=== PATIENT | male | born 1960 | race Caucasian/White ===

== ENCOUNTER 2022-05-09 05:22 | Emergency (ER) | payer BC ==
--- OUTSIDE RECORDS SUMMARY | 2022-05-09 05:25 | XMS REPORT | Continuity of Care Document ---
:1960 Author Organization [facility] t Address [address] [facility] [address] [place] [address] Care Team Providers Name Role Phone Everett Morin Attending Clinician Unavailable ESTHER JEFFRIES Attending Clinician Unavailable Faustina Adams Attending Clinician Payers Payer Name Policy Type Policy Number Effective Date Expiration Date S [facility] [employer] 6 [id number] 2018 Common Spir it [employer] of 10 00:00:00 - [facility] Problems Condition Condition Condition Status Onset Resolution Last Treating Co mments Source Name Details Category Date Date Treatment Clinician Date R05 - R05 - Diagnosis Active 2015-11-20 Mem oria COUGH COUGH 11-19 12:30:00 l Active 00:01: Chele 11/20/2015 00 [facility] OPID [place] [id number] Hypertrigl Problem Active Co mmon yceridemia Spirit - [facility] [id number] Non-season Problem Active Com mon al Spirit allergic - [id number] HTN, goal Problem Active Comm on below Spirit 140/90 - [facility] [id number] Erectile Problem Active Comm on dysfunctio Spirit n, - [facility] unspec[facility]ie [facility] d erectile [facility]ctio [facility] [id number] GERD Problem Active Common without Spirit esophagiti - [facility] [id number] Mitral Problem Active Common valve Spirit prolapse - [facility] Allergies, Adverse Reactions, Alerts This patient has no known allergies or adverse reactions. Social History Social Habit Start Date Stop Date Quantity Comments Source History of Tobacco Common Spirit - Use [facility] Sex Assigned At Common Sp ronda - [facility] Social History 2015-11-20 2015-11-20 Janki chin 16:24:16 16:24:16 Smoking Status Start Date Stop Date Source Former Smoker 2021-09-09 00:00:00 2021-09-09 00:00:00 Common S pirit [facility] Medications Ordered Filled Start Stop Current Ordering Indication Dosage Frequency Signature Comments Components Source Medication Medication Date Date Medication? Clinician (SIG) Name Name Lisinopril- Lisinopril- Yes Everett 1 tablet Common Hydrochloro Hydrochloro [facility] thiazide thiazide - [facility] Nexium Nexium Yes Everett [address] [facility] Allergy Allergy Yes Everett 1 tablet Com mon Relief Relief [facility] Turmeric Turmeric Yes Everett as Commo n [facility] directed [facility] Lisinopril- Lisinopril- No 1{table QD Lisinopril hydroCHLORO hydroCHLORO t} -hydroCHLO thiazide thiazide ROthiazide 20-12.5 MG 20-12.5 MG 20-12.5 MG Turmeric Turmeric No Turmeric 1053 MG 1053 MG 1053 MG NexIUM 20 NexIUM 20 No 1{capsu QD NexIUM 20 MG MG le} MG Allergy Allergy No 1{table QD Allergy Relief 10 Relief 10 t} Relief 10 MG MG MG Turmeric Turmeric No Turmeric 1053 MG 1053 MG 1053 MG Lisinopril- Lisinopril- No 1{table QD Lisinopril hydroCHLORO hydroCHLORO t} -hydroCHLO thiazide thiazide ROthiazide 20-12.5 MG 20-12.5 MG 20-12.5 MG Allergy Allergy No 1{table QD Allergy Relief 10 Relief 10 t} Relief 10 MG MG MG NexIUM 20 NexIUM 20 No 1{capsu QD NexIUM 20 MG MG le} MG Turmeric Turmeric No Turmeric 1053 MG 1053 MG 1053 MG Lisinopril- Lisinopril- No 1{table QD Lisinopril hydroCHLORO hydroCHLORO t} -hydroCHLO thiazide thiazide ROthiazide 20-12.5 MG 20-12.5 MG 20-12.5 MG Allergy Allergy No 1{table QD Allergy Relief 10 Relief 10 t} Relief 10 MG MG MG NexIUM 20 NexIUM 20 No 1{capsu QD NexIUM 20 MG MG le} MG NexIUM 20 NexIUM 20 No 1{capsu QD NexIUM 20 MG MG le} MG Lisinopril- Lisinopril- No 1{table QD Lisinopril hydroCHLORO hydroCHLORO t} -hydroCHLO thiazide thiazide ROthiazide 20-12.5 MG 20-12.5 MG 20-12.5 MG Allergy Allergy No 1{table QD Allergy Relief 10 Relief 10 t} Relief 10 MG MG MG Turmeric Turmeric No Turmeric 1053 MG 1053 MG 1053 MG NexIUM 20 NexIUM 20 No 1{capsu QD NexIUM 20 MG MG le} MG Lisinopril- Lisinopril- No 1{table QD Lisinopril hydroCHLORO hydroCHLORO t} -hydroCHLO thiazide thiazide ROthiazide 20-12.5 MG 20-12.5 MG 20-12.5 MG Allergy Allergy No 1{table QD Allergy Relief 10 Relief 10 t} Relief 10 MG MG MG Turmeric Turmeric No Turmeric 1053 MG 1053 MG 1053 MG Lisinopril- Lisinopril- No 1{table QD Lisinopril hydroCHLORO hydroCHLORO t} -hydroCHLO thiazide thiazide ROthiazide 20-12.5 MG 20-12.5 MG 20-12.5 MG Turmeric Turmeric No Turmeric 1053 MG 1053 MG 1053 MG NexIUM 20 NexIUM 20 No 1{capsu QD NexIUM 20 MG MG le} MG Allergy Allergy No 1{table QD Allergy Relief 10 Relief 10 t} Relief 10 MG MG MG Immunizations Ordered Immunization Filled Immunization Date Status Commen ts Source Name Name Boostrix (Tdap) Boostrix (Tdap) 2020-11-06 Completed Comm on - 14:16:00 [facility] Boostrix (Tdap) Boostrix (Tdap) 2020-11-06 Completed Comm on 14:16:00 [facility] Boostrix (Tdap) Boostrix (Tdap) 2020-11-06 Completed Comm on Spirit - 14:16:00 [facility] Boostrix (Tdap) Boostrix (Tdap) 2020-11-06 Completed Comm on Spirit - 14:16:00 [facility] Boostrix (Tdap) Boostrix (Tdap) 2020-11-06 Completed Comm on Spirit - 14:16:00 [facility] Boostrix (Tdap) Boostrix (Tdap) 2020-11-06 Completed Comm on Spirit - 14:16:00 [facility] PNEUMAVAX 23 PNEUMAVAX 2018-10-18 Completed Common Spi rit - 14:16:00 [facility] PNEUMAVAX 23 PNEUMAVAX 2018-10-18 Completed Common Spi rit - 14:16:00 [facility] PNEUMAVAX 23 PNEUMAVAX 2018-10-18 Completed Common Spi rit - 14:16:00 [facility] PNEUMAVAX 23 PNEUMAVAX 2018-10-18 Completed Common Spi rit - 14:16:00 [facility] PNEUMAVAX 23 PNEUMAVAX 2018-10-18 Completed Common Spi rit - 14:16:00 [facility] PNEUMAVAX 23 PNEUMAVAX 2018-10-18 Completed Common Spi rit - 14:16:00 [facility] Afluria Afluria 2018-10-18 Completed Common Spirit - 14:15:00 [facility] Afluria Afluria 2018-10-18 Completed Common Spirit - 14:15:00 [facility] Afluria Afluria 2018-10-18 Completed Common Spirit - 14:15:00 [facility] Afluria Afluria 2018-10-18 Completed Common Spirit - 14:15:00 [facility] Afluria Afluria 2018-10-18 Completed Common Spirit - 14:15:00 [facility] Afluria Afluria 2018-10-18 Completed Common Spirit - 14:15:00 [facility] Afluria Afluria 2018-10-18 Completed Common Spirit - 00:00:00 [facility] PNEUMAVAX 23 PNEUMAVAX 23 2018-10-18 Completed Common Spi rit - 00:00:00 [facility] diphtheria/pertussis 2013-02-20 Completed [place] rial , acel/tetanus adult 00:00:00 Alexandr zapata Vital Signs Vital Name Observation Time Observation Value Comments Source blood pressure 2021-09-10 08:00:00 130 mm[Hg] [facility] systolic [facility] blood pressure 2021-09-10 08:00:00 82 mm[Hg] [facility] - diastolic [facility] height 2021-09-10 08:00:00 75 [in_i] [facility] weight 2021-09-10 08:00:00 185.5 [lb_av] [facility] temperature 2021-09-10 08:00:00 98.4 [degF] [facility] bmi 2021-09-10 08:00:00 23.18 kg/m2 [facility] oximetry 2021-09-10 08:00:00 95 % [facility] respiratory rate 2021-09-10 08:00:00 17 /min Comm on [facility] height 2021-07-15 15:00:00 75 [in_i] [facility] weight 2021-07-15 15:00:00 184.4 [lb_av] [facility] temperature 2021-07-15 15:00:00 99.1 [degF] [facility] bmi 2021-07-15 15:00:00 23.05 kg/m2 [facility] oximetry 2021-07-15 15:00:00 95 % [facility] respiratory rate 2021-07-15 15:00:00 16 /min Comm on [facility] blood pressure 2021-07-15 15:00:00 121 mm[Hg] [facility] systolic [facility] blood pressure 2021-07-15 15:00:00 69 mm[Hg] [facility] diastolic [facility] height 2020-11-06 13:30:00 75 [in_i] Common S pirit [facility] weight 2020-11-06 13:30:00 177 [lb_av] Common [facility] bmi 2020-11-06 13:30:00 22.12 kg/m2 [facility] Procedures Procedure Date / Time Performed Performing Clinician Binu bobo Colonoscopy 2010-02-20 00:00:00 [facility] Encounters Start End Encounter Admission Attending Care Care Encounter Source Date/Time Date/Time Type Type Clinicians Facility Department ID 2022-03-31 Outpatient Morin, STLMLC STLMLC [id number] Common 15:28:00 [facility] [address] [facility] 2021-07-28 Outpatient Morin, STLMLC STLMLC [id number] Common 10:43:00 [facility] [address] [facility] 2021-11-05 2021-11-05 (TEL) STLMLC STLMLC [id number] Co mmon 00:00:00 00:00:00 [facility] 2021-09-10 2021-09-10 OFFICE STLMLC STLMLC [id number] Co mmon 00:00:00 00:00:00 VISIT EST Spir it PT LEVEL 3 [facility] 2021-08-17 2021-08-17 (TEL) STLMLC STLMLC [id number] Co mmon 00:00:00 00:00:00 [facility] 2021-07-15 2021-07-15 PREV VISIT STLMLC STLMLC [id number] Common 00:00:00 00:00:00 EST AGE Spirit 40-64 [facility] 2020-11-06 2020-11-06 (TEL) STLMLC STLMLC [id number] Co mmon 00:00:00 00:00:00 [facility] 2020-11-06 2020-11-06 (INJ) STLMLC STLMLC [id number] Co mmon 00:00:00 00:00:00 Injection Spir it - [facility] 2020-09-21 2020-09-21 Outpatient STLMLC STLMLC [id number] Common 00:00:00 00:00:00 [facility] 2020-09-21 2020-09-21 Outpatient STLMLC STLMLC [id number] Common 00:00:00 00:00:00 [facility] 2020-05-29 2020-05-29 Outpatient BRITANY JEFFRIES MHTW [id number] MHTW 12:21:00 23:59:00 ESTHER 2019-02-27 2019-02-27 [id number] Common 16:38:00 16:38:[address] [facility] [facility] 2018-11-22 2018-11-22 Outpatient [facility] [id number] Common 13:00:00 13:00:[address] [facility] [facility] 2018-10-18 2018-10-18 Out[facility] [id number] Common 13:30:00 13:30:[address] [facility] [facility] 2015-11-20 2015-11-21 Outpt Diag nullFlavo [facility] [id number] Memoria 17:21:00 04:59:00 Services r Outpatient 00 l Imaging Chele Elaine 2015-11-20 2015-11-20 Outpatient SARIAH Adams [facility] [id number] 285 12:21:00 23:59:00 Faustina Rubio 00 Results Test Description Test Time Test Comments Results Result Comments Source Colonoscopy Colonoscopy
[2022-05-09 05:58] LABS: Absolute Lymphocytes (CBC) 1.1 K/uL (0.7-4.9); Hematocrit 46.3 % (39.6-49.0); Lymphocytes % 15.4 % (15.3-44.8); MCV 85.6 fL (80-100); MPV 7.2 fL (7.6-11.3); RBC Red Blood Cell Count 5.41 M/uL (4.33-5.43)
[2022-05-09 06:17] LABS: Albumin 4.1 g/dL (3.4-5.0); Bilirubin Total 0.8 mg/dL (0.2-1.0); Magnesium 1.8 mg/dL (1.6-2.4); Potassium 3.8 mEq/L (3.5-5.1); Protein, Total 7.5 g/dL (6.4-8.2); Troponin High Sensitivity 6.2 pg/mL (<58.9)
[2022-05-09] MEDS ORDERED: FAMOTIDINE 20 MG/2 ML VIAL IV ONE (07:30)
[2022-05-09 07:45] LABS: Urine Blood Negative (Negative); Urine Glucose Negative (Negative); Urine Protein Negative (Negative); Urine Specific Gravity 1.015 (1.005-1.030); Urine pH 7.5 (5.0-7.0)
--- NOTE | 2022-05-09 08:30 | RAD REPORT ---
EXAM DESCRIPTION: CT - Abdomen Pelvis Wo Contrast - 05/09/2022 7:24 am CLINICAL HISTORY: Abdominal pain. ABD PAIN COMPARISON: Chest For Pe Angio dated 05/09/2022 TECHNIQUE: CT imaging of the abdomen and pelvis was performed without contrast. Solid organ, bowel a nd vascular assessment is limited due to lack of IV and oral contrast. All CT scans are performed using dose optimization technique as appropriate and may include automated exposure control or mA/KV adjustment according to patient size. FINDINGS: Nondisplaced lateral right ninth and tenth rib fractures are seen. Mild atelectasis is pre sent in the right lung base. The liver, spleen, pancreas, adrenal glands and kidneys are within normal limits for a limited non-co ntrast examination. No bowel obstruction, free air, free fluid or abscess. The appendix is normal. Moderate lumbosacral degenerative changes. IMPRESSION: Nondisplaced lateral right ninth and tenth rib fractures. A limited non-contrast examination was performed as detailed.
--- NOTE | 2022-05-09 08:33 | RAD REPORT ---
EXAM DESCRIPTION: CT - Chest For Pe Angio - 05/09/2022 6:59 am CLINICAL HISTORY: Chest pain. CHEST PAIN COMPARISON: Lung Cancer Screening CT W/O dated 08/17/2021 TECHNIQUE: CT angiogram of the pulmonary arteries was performed with MIP. All CT scans are performed using dose optimization technique as appropriate and may include automated exposure control or mA/KV adjustment according to patient size. FINDINGS: No evidence of pulmonary thromboembolism. No acute aortic finding demonstrated. Mild diffuse COPD. No significant pericardial or pleural fluid. Lateral right ninth and tenth nondisplaced rib fractures. IMPRESSION: No evidence of pulmonary thromboembolism. Nondisplaced lateral right ninth and tenth rib fractures.
--- NOTE | 2022-05-09 08:52 | ER ---
Nurse's Notes [facility] Name: Eliazar Galvez Age: 61 yrs Sex: Male : 1960 Arrival Date: 05/09/2022 Time: 05:25 Bed 4 Private MD: Diagnosis: Pleurisy;Unspecified symptoms and signs involving the musculoskeletal system;Multiple fractures of ribs, right side-9th and 10th lateral non-displaced;COPD/ Chronic obstructive pulmonary disease, unspecified Presentation: 05/09 05:39 Chief complaint: Patient states: right side pain since Monday denies injury pain kl increases with deep breatrhing. Coronavirus screen: Vaccine status: Patient reports being unvaccinated. Ebola Screen: Patient negative for fever greater than or equal to 101.5 degrees Fahrenheit, and additional compatible Ebola Virus Disease symptoms. Initial Sepsis Screen: Does the patient meet any 2 criteria? No. Patient's initial sepsis screen is negative. Does the patient have a suspected source of infection? No. Patient's initial sepsis screen is negative. Risk Assessment: Do you want to hurt yourself or someone else? Patient reports no desire to harm self or others. Onset of symptoms was May 07, 2022. 05:39 Method Of Arrival: Ambulatory kl 05:39 Acuity: HUMA 3 kl Triage Assessment: 05:42 General: Appears uncomfortable, well groomed, well developed, Behavior is calm, kl cooperative. Pain: Complains of pain in right lateral posterior chest Pain currently is 8 out of 10 on a pain scale. at worst was 10 out of 10 on a pain scale. Quality of pain is described as sharp, stabbing. EENT: No deficits noted. No signs and/or symptoms were reported regarding the EENT system. Neuro: No deficits noted. Level of Consciousness is awake, alert, obeys commands, Oriented to person, place, time, situation. Cardiovascular: No deficits noted. Rhythm is sinus rhythm. Respiratory: Reports pain with respiration. GI: No deficits noted. No signs and/or symptoms were reported involving the gastrointestinal system. : No deficits noted. No signs and/or symptoms were reported regarding the genitourinary system. Historical: - Allergies: 05:36 No Known Allergies; ms3 - Home Meds: 05:53 Lisinopril Oral [Active]; Nexium Oral [Active]; kl - PMHx: 05:36 Hypertensive disorder; ms3 05:53 GERD; kl - Immunization history:: Adult Immunizations not up to date. - Social history:: Smoking status: Patient denies any tobacco usage or history of. Patient uses alcohol, on a daily basis. Screenin:43 [facility] ED Fall Risk Assessment (Adult) History of falling in the last 3 months, including since admission No falls in past 3 months (0 pts) Confusion or Disorientation No (0 pts) Intoxicated or Sedated No (0 pts) Impaired Gait No (0 pts) Mobility Assist Device Used No (0 pt) Altered Elimination No (0 pt) Score/Fall Risk Level 0 - 2 = Low Risk Oriented to surroundings, Maintained a safe environment. Abuse screen: Denies threats or abuse. Nutritional screening: No deficits noted. Tuberculosis screening: No symptoms or risk factors identified. Assessment: 05:45 Reassessment: see triage. 06:29 Reassessment: Patient appears in no apparent distress at this time. Patient and/or jb4 family updated on plan of care and expected duration. Pain level reassessed. Patient is alert, oriented x 3, equal unlabored respirations, skin warm/dry/pink. 08:30 Reassessment: Patient is alert, oriented x 3, equal unlabored respirations, skin aa5 warm/dry/pink. 09:05 Reassessment: Patient appears in no apparent distress at this time. Patient and/or vg1 family updated on plan of care and expected duration. Pain level reassessed. Patient is alert, oriented x 3, equal unlabored respirations, skin warm/dry/pink. education provided for Incentive spirometry. Vital Signs: 05:39 BP 165 / 105; Pulse 89; Resp 20; Temp 98(O); Pulse Ox 97% on R/A; Weight 84.82 kg (R); Height 6 ft. 3 in. ; Pain 8/10; 06:41 BP 134 / 99; Pulse 77; Resp 13; Pulse Ox 97% on R/A; jb4 07:30 BP 133 / 91; Pulse 92; Resp 18; Pulse Ox 100% on R/A; vg1 08:45 BP 133 / 84; Pulse 70; Resp 18; Pulse Ox 100% on R/A; vg1 05:39 Body Mass Index 23.37 (84.82 kg, 190.5 cm) kl 05:39 Pain Scale: Adult kl ED Course: 05:25 Patient arrived in ED. jj6 05:25 Joon Cat DO is Attending Physician. ms3 05:42 Triage completed. kl 05:43 Natalio Nicole, RN is Primary Nurse. jb4 05:51 XRAY Chest (1 view) In Process Unspecified. EDMS 05:54 Troponin HS Sent. jb4 05:54 Magnesium Sent. jb4 05:54 D-Dimer Sent. jb4 05:54 CBC with Diff Sent. jb4 05:54 CMP Sent. jb4 07:01 CT Chest For PE Angio In Process Unspecified. EDMS 07:02 Attending Physician role handed off by Joon Cat DO ms3 07:02 Miguel Angel Pires MD is Attending Physician. ms3 07:26 CT Abd/Pelvis - Without Contrast In Process Unspecified. EDMS 08:30 Patient has correct armband on for positive identification. Placed in gown. Bed in low aa5 position. Call light in reach. Side rails up X 1. 08:32 US Extremity Venous W Compression Xavier In Process Unspecified. EDMS 08:51 Whitney Li MD is Referral Physician. mark 09:04 No provider procedures requiring assistance completed. IV discontinued, intact, vg1 bleeding controlled, No redness/swelling at site. Pressure dressing applied. Administered Medications: 07:31 Drug: Famotidine IVP 20 mg Route: IVP; Site: right forearm; jb4 Medication: 05:45 VIS not applicable for this client. Outcome: 08:51 Discharge ordered by . mark 09:04 Discharged to home ambulatory, with family. vg1 09:04 Condition: good 09:04 Discharge instructions given to patient, family, Instructed on discharge instructions, follow up and referral plans. medication usage, Demonstrated understanding of instructions, follow-up care, medications. 09:04 Demonstrated understanding of Prescriptions given X 4. 09:06 Patient left the ED. vg1 Signatures: Dispatcher [employer] EDDahlia Torres RN Miguel Angel Earl MD MD cha Calderon, Audri RN RN aa5 Natalio Nicole, RN Anna Tinajero RN EDITH vg1 Joon Cat DO DO ms3 Sidney Svetlana jj6 Corrections: (The following items were deleted from the chart) 09:05 08:30 Reassessment: Patient is alert, oriented x 3, equal unlabored respirations, skin aa5 warm/dry/pink. aa5
--- NOTE | 2022-05-09 08:52 | RAD REPORT ---
EXAM DESCRIPTION: US - Extrem Venous W Compress Xavier - 05/09/2022 8:30 am CLINICAL HISTORY: PAIN Bilateral leg edema and swelling. COMPARISON: No comparisons TECHNIQUE: Real-time sonographic interrogation of the left and right lower extremity deep venous sys tems was performed. FINDINGS: Normal compressibility, flow augmentation, phasic flow and spontaneous flow is identified in both the left and right lower extremity deep venous systems. IMPRESSION: No sonographic evidence of left or right lower extremity deep venous thrombosis.
--- NOTE | 2022-05-09 08:52 | EDPHYS ---
Physician Documentation [facility] Name: Eliazar Galvez Age: 61 yrs Sex: Male : 1960 Arrival Date: 05/09/2022 Time: 05:25 Bed 4 Private MD: ED Physician Miguel Angel Pires HPI: 05/09 05:35 This 61 yrs old Male presents to ER via Unassigned with complaints of Right sided chest ms3 pain. 05:35 61-year-old male with past medical history of hypertension presents for right lower ms3 lateral chest pain. Patient states the pain began on Monday morning and has been waxing and waning since that time. Patient notes the pain became worse yesterday. Patient states the pain is currently an 8/10 and sharp and stabbing. Patient states the pain is worse with deep breathing. Patient denies alleviating factors. Patient denies nausea, vomiting, diarrhea, fevers, chills. Historical: - Allergies: 05:36 No Known Allergies; ms3 - Home Meds: 05:53 Lisinopril Oral [Active]; Nexium Oral [Active]; kl - PMHx: 05:36 Hypertensive disorder; ms3 05:53 GERD; kl - Immunization history:: Adult Immunizations not up to date. - Social history:: Smoking status: Patient denies any tobacco usage or history of. Patient uses alcohol, on a daily basis. ROS: 05:36 Constitutional: Negative for fever, and chills. ENT: Negative for injury, pain, and ms3 discharge, Neck: Negative for injury, pain, and swelling. 05:36 Respiratory: Negative for shortness of breath, cough, wheezing, and pleuritic chest pain, Abdomen/GI: Negative for abdominal pain, nausea, vomiting, diarrhea, and constipation, MS/Extremity: Negative for injury and deformity, Skin: Negative for injury, rash, and discoloration, Neuro: Negative for headache, weakness, numbness, tingling. 05:36 Cardiovascular: Positive for chest pain. 05:36 All other systems are negative. Exam: 05:36 Constitutional: This is a well developed, well nourished patient who is awake, alert, ms3 and in no acute distress. Head/Face: Normocephalic, atraumatic. Eyes: Pupils equal round and reactive to light, extra-ocular motions intact. Lids and lashes normal. Conjunctiva and sclera are non-icteric and not injected. Periorbital areas with no swelling, redness, or edema. Chest/axilla: Normal chest wall appearance and motion. Nontender with no deformity. Respiratory: Lungs have equal breath sounds bilaterally, clear to auscultation and percussion. No rales, rhonchi or wheezes noted. No increased work of breathing, no retractions or nasal flaring. Abdomen/GI: Soft, non-tender, with normal bowel sounds. No distension or tympany. No guarding or rebound. No evidence of tenderness throughout. Skin: Warm, dry with normal turgor. Normal color with no rashes, no lesions, and no evidence of cellulitis. MS/ Extremity: Pulses equal, no cyanosis. Neurovascular intact. Full, normal range of motion. 05:36 Cardiovascular: Regular rate and rhythm with a normal S1 and S2. No gallops, murmurs, or rubs. Normal PMI, no JVD. No pulse deficits. 05:36 Chest/axilla: Inspection: normal, Palpation: tenderness, that is moderate, of the right lateral posterior chest. 05:40 ECG was reviewed by the Attending Physician. ms3 Vital Signs: 05:39 BP 165 / 105; Pulse 89; Resp 20; Temp 98(O); Pulse Ox 97% on R/A; Weight 84.82 kg (R); kl Height 6 ft. 3 in. ; Pain 8/10; 06:41 BP 134 / 99; Pulse 77; Resp 13; Pulse Ox 97% on R/A; jb4 07:30 BP 133 / 91; Pulse 92; Resp 18; Pulse Ox 100% on R/A; vg1 08:45 BP 133 / 84; Pulse 70; Resp 18; Pulse Ox 100% on R/A; vg1 05:39 Body Mass Index 23.37 (84.82 kg, 190.5 cm) kl 05:39 Pain Scale: Adult kl MDM: 05:35 Patient medically screened. ms3 05:36 Differential diagnosis: abnormal EKG, coronary artery disease chest wall pain, ms3 pulmonary embolus. Scoring Tools PERC Rule for PE Age > /= 50 Yes (1) HR > /= 100 No (0) O2 Sat Room Air < 95% No (0) Unilateral leg swelling No (0) Hemoptysis No (0) Recent surgery or trauma </= 4 weeks ago, requiring treatment with General Anesthesia No (0) Prior PE or DVT No (0) Hormone use Yes (1). 07:01 Transition of care: After a detail discussion of the patient's case, care is ms3 transferred to Miguel Angel Pires MD. 05/09 05:35 Order name: CBC with Diff; Complete Time: 06:17 ms3 05/09 05:35 Order name: D-Dimer; Complete Time: 06:07 ms3 05/09 05:35 Order name: Magnesium; Complete Time: 06:17 ms3 05/09 05:35 Order name: Troponin HS; Complete Time: 06:17 ms3 05/09 05:35 Order name: CMP; Complete Time: 06:17 ms3 05/09 07:45 Order name: Urine Dipstick-Ancillary; Complete Time: 07:50 EDMS 05/09 05:35 Order name: XRAY Chest (1 view); Complete Time: 15:57 ms3 05/09 06:07 Order name: CT Chest For PE Angio; Complete Time: 08:47 ms3 05/09 07:14 Order name: US Extremity Venous W Compression Xavier; Complete Time: 15:57 mark 05/09 07:14 Order name: CT Abd/Pelvis - Without Contrast; Complete Time: 08:47 mark 05/09 08:57 Order name: INCENTIVE SPIROMETRY [facility] 05/09 05:35 Order name: EKG; Complete Time: 05:36 ms3 05/09 05:35 Order name: Cardiac monitoring; Complete Time: 05:43 ms3 05/09 05:35 Order name: EKG - Nurse/Tech; Complete Time: 05:43 ms3 05/09 05:35 Order name: IV Saline Lock; Complete Time: 05:53 ms3 05/09 05:35 Order name: Labs collected and sent; Complete Time: 05:53 ms3 05/09 05:35 Order name: O2 Per Protocol; Complete Time: 05:43 ms3 05/09 05:35 Order name: O2 Sat Monitoring; Complete Time: 05:43 ms3 05/09 07:11 Order name: Urine Dipstick-Ancillary (obtain specimen); Complete Time: 07:45 [facility] EC:40 Rate is 82 beats/min. Rhythm is regular. QRS [place] is Normal. [place] interval is normal. QRS ms3 interval is normal. QT interval is normal. Clinical impression: NSR w/ Non-specific ST/T Changes. Interpreted by me. Reviewed by me. Administered Medications: 07:31 Drug: Famotidine IVP 20 mg Route: IVP; Site: right forearm; jb4 Disposition Summary: 05/09/22 08:51 Discharge Ordered Location: Home mark Problem: new mark Symptoms: have improved mark Condition: Stable mark Diagnosis - Pleurisy mark - Unspecified symptoms and signs involving the musculoskeletal system mark - Multiple fractures of ribs, right side - 9th and 10th lateral non-displaced mark - COPD/ Chronic obstructive pulmonary disease, unspecified mark Followup: mark - With: Private Physician - When: 2 - 3 days - Reason: Recheck today's complaints, Continuance of care, Re-evaluation by your physician Followup: mark - With: - When: 2 - 3 days - Reason: Recheck today's complaints, Re-evaluation by your physician Discharge Instructions: - Discharge Summary Sheet mark - Chronic Obstructive Pulmonary Disease mark - Pleurisy mark - Rib Fracture mark - Pleurisy, [id number] mark - Rib Fracture, [id number] [facility] Forms: - Medication Reconciliation Form [facility] - Thank You Letter mark - Antibiotic Education [facility] - Prescription Opioid Use [facility] Prescriptions: - acetaminophen-codeine 300-30 mg Oral tablet - take 2 tablet by ORAL route every 6 hours as needed for pain; 20 tablet; mark Refills: 0, Product Selection Permitted - Protonix 40 mg Oral tablet,delayed release (DR/EC) - take 1 tablet by ORAL route once daily; 20 tablet; Refills: 0, Product [facility] Selection Permitted - Valium 5 mg Oral Tablet - take 1 tablet by ORAL route every 8 hours As needed; 20 tablet; Refills: 0, [facility] Product Selection Permitted - Diclofenac Sodium 75 mg Oral tablet,delayed release (DR/EC) - take 1 tablet by ORAL route 2 times per day; 20 tablet; Refills: 0, Product [facility] Selection Permitted Signatures: Dispatcher [employer] Dahlia Dubois RN RN kl Anderson, Corey, MD MD cha Bryson, James, RN RN jb4 Joon Cat DO DO ms3 Corrections: (The following items were deleted from the chart) 07:18 07:12 Abdomen Pelvis W [id number] ordered. EDMS EDMS
[2022-05-09 11:29] VITALS: TEMP 98
[2022-05-09 11:32] VITALS: O2SAT 100
[2022-05-09 11:33] VITALS: BP 133/84
--- NOTE | 2022-05-09 15:39 | RAD REPORT ---
EXAM DESCRIPTION: XR CHEST 1 VIEW CLINICAL HISTORY: CHEST PAIN COMPARISON: None FINDINGS: The lungs are under aerated but otherwise clear bilaterally. There is no focal infiltrat e, pleural effusion or pneumothorax. The cardiomediastinal contours are unremarkable. There are no ac chaparrita bony or soft tissue abnormalities. IMPRESSION: No acute cardiopulmonary process. Electronically signed by: Joaquin Sampson MD 05/09/2022 6:05 AM CDT Due to temporary technical issues with the PACS/Fluency reporting system, reports are being signed by the in house radiologists without review as a courtesy to insure prompt reporting. The interpreting radiologist is fully responsible for the content of the report.
== END 2022-05-09 09:06 | disposition home or self-care (01) ==
LOC: ER 05:22
DX: R09.1 Pleurisy (principal); S22.41XA Multiple fractures of ribs, right side, initial encounter for closed fracture; R29.91 Unspecified symptoms and signs involving the musculoskeletal system; J44.9 Chronic obstructive pulmonary disease, unspecified; I10 Essential (primary) hypertension
CPT/HCPCS: 93005; 85025; 36415; 83735; 85379; 81003; 84484; 80053; 71275; 74176; 71045; 93970; Q9967